=== PATIENT | male | born 1955 | race Caucasian/White ===

== ENCOUNTER 2020-12-27 18:21 | Emergency (ER) | payer MEDICARE ==
[~2020-12-27] VITALS: Ht 180.3 cm; Wt 110.0 kg
[~2020-12-27 18:21] MED LIST: CEPHALEXIN500 M1 PO; CIALIS10 MG PO; LOSARTAN POTASS25 MG PO; METFORMIN500 MG PO; PAPAVERINE 30 MG/ML IJ; SIMVASTATIN20 MG PO
[2020-12-27] MEDS ORDERED: DIOVAN160 MG PO (18:54)
[2020-12-27 19:11] LABS: HEMATOCRIT 42.4 % (39.0-50.0); HEMOGLOBIN 14.5 g/dl (14.0-18.0); IMMATURE GRANULOCYTES 0.4 % (0.0-5.0); MEAN CELL VOLUME 85.7 fL CALC (80.0-100.0); MEAN CORPUSCULAR HGB 29.3 pG CALC (26.0-32.0); MEAN CORPUSCULAR HGB CONC 34.2 g/dL CAL (32.0-36.0); NEUT# 4.32 thou/uL (1.82-7.42); RED BLOOD COUNT 4.95 mill/uL (4.70-6.10); RED CELL DISTRI WIDTH 13.2 % (11.5-15.5)
[2020-12-27 19:30] LABS: ALBUMIN 4.1 g/dL (3.2-5.0); ALKALINE PHOSPHATASE 53 u/l (38-126); BUN 17 mg/dL (8-23); BUN/CREATININE RATIO 18 (12-20 (CALC)); CARBON DIOXIDE 25 mmol/l (22-30); CHLORIDE 95 mmol/l (95-108); CREATININE 0.9 mg/dL (0.7-1.3); GFR > 60 ML/MIN (>=60 (CALC)); GFR FOR AFR.AMER. > 60 ML/MIN (>=60 (CALC)); POTASSIUM 4.5 mmol/l (3.5-5.1); SGOT/AST 34 u/l (19-48); TOTAL PROTEIN 7.2 g/dL (6.3-8.2)
[2020-12-27 19:31] LABS: ANION GAP 15 (6-22 (CALC)); BILIRUBIN, TOTAL 0.9 mg/dL (0.0-1.4); SODIUM 130 mmol/l (137-146)
[2020-12-27] MEDS ORDERED: MEDDOSEPAK PO (19:56)
[2020-12-27] MEDS ORDERED: VENTOLIN HFA IN (19:56)
[2020-12-27] MEDS ORDERED: ZITHROMAX500 MG PO (19:56)
[2020-12-27 20:03] VITALS: BP 121/68
== END 2020-12-27 23:16 | disposition left against medical advice (07) ==
LOC: ED 18:21 → ED-I 22:20 → ED 23:16
DX: U07.1 COVID-19 (principal); J12.82 Pneumonia due to coronavirus disease 2019; E11.9 Type 2 diabetes mellitus without complications; I10 Essential (primary) hypertension; Z79.84 Long term (current) use of oral hypoglycemic drugs; Z91.19 Patient's noncompliance with other medical treatment and regimen; Z87.01 Personal history of pneumonia (recurrent)
CPT/HCPCS: Q9967

== ENCOUNTER 2022-10-18 04:52 | Emergency (ER) | payer MEDICARE ==
[2022-10-18] VITALS (16 sets, daily range): BP systolic 121–153; BP diastolic 74–88
[~2022-10-18] VITALS: Ht 180.3 cm; Wt 106.0 kg
[~2022-10-18 04:52] MED LIST changes: +DIOVAN160 MG PO; +MEDDOSEPAK PO; +VENTOLIN HFA IN; +ZITHROMAX500 MG PO
[2022-10-18 05:43] LABS: BASO% 0.3 % (0-3); HEMATOCRIT 38.7 % (39.0-50.0); HEMOGLOBIN 13.8 g/dl (14.0-18.0); IMMATURE GRANULOCYTES 0.3 % (0.0-5.0); LYMPH% 12.1 % (15-41); MEAN CELL VOLUME 89.2 fL CALC (80.0-100.0); MEAN CORPUSCULAR HGB 31.8 pG CALC (26.0-32.0); MEAN CORPUSCULAR HGB CONC 35.7 g/dL CAL (32.0-36.0); MONO% 10.9 % (2-13); NEUT# 6.8 thou/uL (1.82-7.42); NEUT% 73.4 % (42-76); RED BLOOD COUNT 4.34 mill/uL (4.70-6.10); RED CELL DISTRI WIDTH 13.1 % (11.5-15.5)
[2022-10-18 05:46] LABS: ALBUMIN 4.3 g/dL (3.2-5.0); ALKALINE PHOSPHATASE 48 u/l (38-126); ANION GAP 11 (6-22 (CALC)); BILIRUBIN, TOTAL 1.2 mg/dL (0.0-1.4); BUN 19 mg/dL (8-23); BUN/CREATININE RATIO 25 (12-20 (CALC)); CARBON DIOXIDE 27 mmol/l (22-30); CHLORIDE 103 mmol/l (95-108); CREATININE 0.7 mg/dL (0.7-1.3); GFR FOR AFR.AMER. > 60 ML/MIN (>=60 (CALC)); GFR OTHER RACES > 60 ML/MIN (>=60 (CALC)); POTASSIUM 3.9 mmol/l (3.5-5.1); SGOT/AST 33 u/l (19-48); TOTAL PROTEIN 7.4 g/dL (6.3-8.2)
[2022-10-18 05:48] LABS: D-DIMER 0.2 mg/L (0.19-0.60)
[2022-10-18 05:50] LABS: SODIUM 137 mmol/l (137-146)
[2022-10-18 05:53] LABS: ACT PARTIAL THROMBO TIME 30.3 SECONDS (20.0-32.5); INTERNATIONAL NORMALIZED RATIO 1.1 RATIO (0.7-1.3); PROTHROMBIN TIME 10.5 SECONDS (9.0-12.5)
[2022-10-18 05:58] LABS: MYOGLOBIN 162 ng/mL (0 - 121)
== END 2022-10-18 09:03 | disposition short-term general hospital (02) ==
LOC: ED 04:52
PROVIDERS: Family Medicine
DX: U07.1 COVID-19 (principal); R09.81 Nasal congestion; R50.9 Fever, unspecified; R05.9 Cough, unspecified; R51.9 Headache, unspecified; M79.10 Myalgia, unspecified site; R79.89 Other specified abnormal findings of blood chemistry; H10.33 Unspecified acute conjunctivitis, bilateral; I10 Essential (primary) hypertension; E11.9 Type 2 diabetes mellitus without complications; E78.00 Pure hypercholesterolemia, unspecified; Z86.16 Personal history of COVID-19; Z79.84 Long term (current) use of oral hypoglycemic drugs